=== PATIENT | male | born 2000 | race Caucasian/White ===

== ENCOUNTER 2018-12-14 13:41 | Emergency (ER) | payer BC ==
[2018-12-14 15:00] VITALS: BP 99/55
--- NOTE | 2018-12-14 15:05 | UC ---
Throat Pain/Nasal Agustin HPI - HPI Summary HPI Summary: 18 y/o male presents to the urgent care c/o sore throat and clear PND since yesterday. Pt reports he was recently Dx w/ Strep on 12/01/2018 and Rx PCN x 10 days. Pt finished full course of antibiotic this past Tuesday12/10/2018. Symptoms were improving. However he didn't change his tooth brush. Pain w/ swallowing is 5/10 associated w/ white spots on his tonsils. Pt has not taken any medication to alleviate symptoms. Pt deies fever, SOB, chills, cough, SOB, chest pain, abdominal pain, N/V/D. Pt is UTD w/ all vaccines for his age. - History of Current Complaint Chief Complaint: UCGeneralIllness Stated Complaint: ST Time Seen by Provider: 12/14/18 14:53 Hx Obtained From: Patient Onset/Duration: Gradual Onset, Lasting Days - 1 day, Still Present Severity: Moderate Pain Intensity: 5 Pain Scale Used: 0-10 Numeric Cough: None Associated Signs & Symptoms: Positive: Nasal Discharge - clear PND. Negative: Fever - Epiglottits Risk Factors Epiglottis Risk Factors: Negative - Allergies/Home Medications Allergies/Adverse Reactions: Allergies Allergy/AdvReac Type Severity Reaction Status Date / Time No Known Allergies Allergy Verified 12/14/18 14:53 Home Medications: Home Medications Desloratidine (NF) [Clarinex (NF)] 5 mg PO DAILY 12/14/18 [History Confirmed 12/27] Fluticasone NASAL SPRAY 50MCG* [Flonase NASAL SPRAY 50MCG*] 1 spray BOTH NARES DAILY 12/14/18 [History Confirmed 12/14/18] Montelukast Sodium TAB* [Singulair 10 MG TAB*] 10 mg PO BEDTIME 12/14/18 [ History Confirmed 12/14/18] Venlafaxine EXT RELEASE CAP* [Effexor Xr CAP*] 37.5 mg PO BEDTIME 12/14/18 [ History Confirmed 12/14/18] PMH/Surg Hx/FS Hx/Imm Hx Previously Healthy: Yes Respiratory History: Asthma Psychological History: Anxiety - Surgical History Surgical History: None - Family History Known Family History: Positive: None - Pt denies FMHX - Social History Occupation: Student Lives: With Family Alcohol Use: None Substance Use Type: None Smoking Status (MU): Never Smoked Tobacco - Immunization History Vaccination Up to Date: Yes Review of Systems All Other Systems Reviewed And Are Negative: Yes Constitutional: Positive: Negative Skin: Positive: Negative Eyes: Positive: Negative ENT: Positive: Sore Throat, Nasal Discharge - clear, Other - clear PND Respiratory: Positive: Negative Cardiovascular: Positive: Negative Gastrointestinal: Positive: Negative Genitourinary: Positive: Negative Motor: Positive: Negative Neurovascular: Positive: Negative Musculoskeletal: Positive: Negative Neurological: Positive: Negative Psychological: Positive: Negative Is Patient Immunocompromised?: No Physical Exam - Summary Physical Exam Summary: VITAL SIGNS: Reviewed. GENERAL: Patient is a well developed and nourished male adolescent who is sitting comfortable in the examining table. Patient is not in any acute respiratory distress. HEAD AND FACE: No signs of trauma. No ecchymosis, hematomas or skull depressions. No sinus tenderness. EYES: PERRLA, EOMI x 2, No injected conjunctiva, no nystagmus. No photophobia. EARS: Hearing grossly intact. Ear canals and tympanic membranes are within normal limits. MOUTH: Positive pharynx with erythema, exudates, palatal petechiae. B/L tonsillar enlargement with exudate. Uvula in midline. NECK: Supple, trachea is midline, Positive anterior cervical lymphadenopathy, no JVD, no carotid bruit, no c-spine tenderness, neck with full ROM. No meningeal signs, no Kernig's or brudzinskis signs. CHEST: Symmetric, no tenderness at palpation LUNGS: Clear to auscultation bilaterally. No wheezing or crackles. CVS: Regular rate and rhythm, S1 and S2 present, no murmurs or gallops appreciated. ABDOMEN: Soft, non-tender. No signs of distention. No rebound no guarding, and no masses palpated. Bowel sounds are normal. EXTREMITIES: FROM in all major joints, no edema, no cyanosis or clubbing. NEURO: Alert and oriented x 3. No acute neurological deficits. Speech is normal and follows commands. SKIN: Dry and warm Triage Information Reviewed: Yes Vital Signs: Initial Vital Signs Temp 98.3 F 12/14/18 14:55 Pulse 67 12/14/18 14:55 Resp 16 12/14/18 14:55 BP 99/55 12/14/18 14:55 Pulse Ox 100 12/14/18 14:55 Throat Pain/Nasal Course/Dx - Course Course Of Treatment: 18 y/o male presents to the urgent care c/o sore throat and clear PND since yesterday. Pt reports he was recently Dx w/ Strep on 12/01/2018 and Rx PCN x 10 days. Pt finished full course of antibiotic this past Tuesday12/10/2018. Symptoms were improving. However he didn't change his tooth brush. Pain w/ swallowing is 5/10 associated w/ white spots on his tonsils. Pt has not taken any medication to alleviate symptoms. Pt denies fever, SOB, chills, cough, SOB, chest pain, abdominal pain, N/V/D. Pt is UTD w/ all vaccines for his age. Hx obtained. Pt w/ pharyngitis on examination. Rapid strep ordered: result: positive. Strep pharyngitis. Pt already took full tx w/ PCN . Pt Rx Azitromycin PO as directed below. PT Advised to take Ibuprofen PO q6-8hrs prn on hand washing to avoid spreading. Also advised to rest, eat well and avoid strenuous exercise. If symptoms do not improve or worsen advised to return to the urgent care or f/u with her PCP for further evaluation and treatment. D/C instructions explained. PT understood and agreed w/ plan of care - Differential Dx/Diagnosis Differential Diagnosis/HQI/PQRI: Laryngitis, Pharyngitis, URI Provider Diagnosis: Strep pharyngitis Discharge - Sign-Out/Discharge Documenting (check all that apply): Patient Departure - D/C home All imaging exams completed and their final reports reviewed: No Studies - Discharge Plan Condition: Stable Disposition: HOME Prescriptions: Azithromycin TAB* [Zithromax TAB (Z-BOBY) 250 mg #6 tabs] 250 mg PO DAILY #10 tab Patient Education Materials: Strep Throat (ED) Referrals: Hasmukh Burdick MD [Primary Care Provider] - 3 Days Additional Instructions: 1- Please take the full course of the antibiotic to avoid resistance. Take yogurts w/ probiotics or Culturelle to protect your GI system 2-Please take ibuprofen PO q6-8hrs prn as instructed after meals to alleviate pain and swelling. Increase fluid intake, eat well, rest and avoid strenuous exercise. Chnage your tooth brush now and at the end or the antibiotic treatment 3-If symptoms do not improve or worsen please return to the urgent care or f/u with your PCP in 5 days for further evaluation and treatment. - Billing Disposition and Condition Condition: STABLE Disposition: Home
== END 2018-12-14 15:34 | disposition home or self-care (01) ==
LOC: UCCORT 13:41
DX: J02.0 Streptococcal pharyngitis (principal); B95.0 Streptococcus, group A, as the cause of diseases classified elsewhere; F41.9 Anxiety disorder, unspecified
CPT/HCPCS: 87651; 99202; G0463